=== PATIENT | male | born 1995 | race Caucasian/White ===

== ENCOUNTER 2016-12-01 15:14 | Emergency (ER) | payer OTHER ==
[~2016-12-01] VITALS: Ht 177.8 cm; Wt 86.4 kg
[2016-12-01 15:14] VITALS: BP 139/67
[2016-12-01] MEDS ORDERED: CLEO300C2 PO (15:55)
[2016-12-01] MEDS ORDERED: NICO14DI3 TD (15:55)
== END 2016-12-01 16:54 | disposition home or self-care (01) ==
LOC: M ED 16:07
DX: K13.79 Other lesions of oral mucosa (principal); Z88.0 Allergy status to penicillin; F17.200 Nicotine dependence, unspecified, uncomplicated